=== PATIENT | female | born 1980 | race Caucasian/White ===

== ENCOUNTER → 2018-06-16 | Outpatient (REF) | payer BC, MEDICAID ==
[2018-06-16 16:26] LABS: C REACTIVE PROTEIN QUANTITATIV 0.38 MG/DL (0.00-0.30); RHEUMATOID FACTOR QUANT < 10.0 IU/ML (<15.0)
[2018-06-22 00:06] LABS: ANTINUCLEAR ANTIBODIES DIRECT Negative (Negative); HLA-B27 Negative (.)
== END ==
LOC: M LAB REF 15:49 → M LABDRWAD 15:49
PROVIDERS: ATTEND Physician Assistant
DX: M79.18 Myalgia, other site (principal)

== ENCOUNTER → 2018-07-28 | Outpatient (REF) | payer BC, MEDICAID ==
[2018-07-28 17:47] LABS: ALBUMIN 3.9 GM/DL (3.2-5.2); ALT/SGPT 34 U/L (12-78); BILIRUBIN,TOTAL 0.6 MG/DL (0.2-1.0); BLOOD UREA NITROGEN 9 MG/DL (7-18); CARBON DIOXIDE LEVEL 29 MEQ/L (21-32); CHLORIDE LEVEL 109 MEQ/L (98-107); CREATININE FOR GFR 0.93 MG/DL (0.55-1.30); GLOMERULAR FILTRATION RATE > 60.0 (>60); GLUCOSE, FASTING 95 MG/DL (70-100); POTASSIUM SERUM 3.8 MEQ/L (3.5-5.1); PROLACTIN 5.2 NG/ML; SODIUM LEVEL 142 MEQ/L (136-145); TESTOSTERONE 33 NG/DL (14-76); TOTAL PROTEIN 7.7 GM/DL (6.4-8.2)
[2018-07-28 17:48] LABS: ESTRADIOL 42.4 PG/ML; FOLLICLE STIMULATING HORMONE 7.3 mIU/mL
[2018-07-28 17:55] LABS: AMORPHOUS SEDIMENT SMALL (NEGATIVE); APPEARANCE, URINE HAZY (CLEAR); BACTERIA, URINE AUTO NEGATIVE (NEGATIVE); BILIRUBIN, URINE AUTO NEGATIVE (NEGATIVE); BLOOD, URINE BLOOD NEGATIVE (NEGATIVE); COLOR, URINE AMBER (YELLOW); GLUCOSE, URINE (UA) AUTO NEGATIVE (NEGATIVE); KETONE, URINE AUTO TRACE mg/dL (NEGATIVE); LEUKOCYTE ESTERASE, URINE AUTO TRACE (NEGATIVE); MUCUS, URINE LARGE (NEGATIVE); NITRITE, URINE AUTO NEGATIVE (NEGATIVE); PROTEIN, URINE AUTO 2+ mg/dL (NEGATIVE); RBC, URINE AUTO 2 /HPF (0-3); SPECIFIC GRAVITY URINE AUTO 1.026 (1.002-1.035); SQUAMOUS EPITHELIAL CELL UR AU 5 /HPF (0-6); WBC, URINE AUTO 8 /HPF (0-3)
[2018-07-28 18:28] LABS: HIV 1&2 SCREEN CENTAUR NEGATIVE (NEGATIVE)
[2018-07-28 21:46] LABS: CHLAMYDIA DNA AMPLIFICATION NEGATIVE (NEGATIVE); GC DNA AMPLIFICATION NEGATIVE (NEGATIVE)
[2018-07-30 10:39] LABS: HEPATITIS B SURFACE ANTIGEN NEGATIVE (NEGATIVE)
[2018-08-03 14:13] LABS: HSV TYPE I IgM AB <1:10 titer (<1:10); HSV TYPE II IgM ABY <1:10 titer (<1:10)
== END ==
LOC: M LABDRAW1 17:00
PROVIDERS: ATTEND Nurse Practitioner Family
DX: Z11.3 Encounter for screening for infections with a predominantly sexual mode of transmission (principal); E28.2 Polycystic ovarian syndrome; N91.5 Oligomenorrhea, unspecified; N39.0 Urinary tract infection, site not specified

== ENCOUNTER → 2022-04-08 | Outpatient (CLI) | payer MEDICAID ==
[2022-04-08 15:36] LABS: BASO # 0.1 10^3/uL (0.0-0.2); BASO % 1.1 % (0.0-1.0); EOS # 0.5 10^3/uL (0.0-0.5); EOS % 4.6 % (0.0-3.0); HEMATOCRIT 47.6 % (36.0-47.0); HEMOGLOBIN 14.9 g/dl (12.0-15.5); LYMPH # 3.1 10^3/uL (1.5-5.0); LYMPH % 29.7 % (24.0-44.0); MEAN CORPUSCULAR HEMOGLOBIN 29.9 pg (27.0-33.0); MEAN CORPUSCULAR HGB CONC 31.3 g/dl (32.0-36.5); MEAN CORPUSCULAR VOLUME 95.6 fl (80.0-96.0); MONO # 0.6 10^3/uL (0.0-0.8); MONO % 5.4 % (2.0-8.0); NEUTROPHILS # 6.2 10^3/uL (1.5-8.5); NEUTROPHILS % 58.8 % (36.0-66.0); PLATELET COUNT, AUTOMATED 426 10^3/uL (150-450); RED BLOOD COUNT 4.98 10^6/uL (4.00-5.40); WHITE BLOOD COUNT 10.5 10^3/uL (4.0-10.0)
[2022-04-08 15:52] LABS: APPEARANCE, URINE MANUAL HAZY (CLEAR); COLOR, URINE MANUAL YELLOW (YELLOW)
[2022-04-08 15:53] LABS: SPECIFIC GRAVITY,URINE MANUAL 1.015 (1.002-1.035)
[2022-04-08 15:55] LABS: BILIRUBIN, URINE MANUAL NEGATIVE (NEGATIVE); BLOOD URINE MANUAL NEGATIVE (NEGATIVE); GLUCOSE, URINE (UA) MANUAL NEGATIVE (NEGATIVE); KETONE, URINE MANUAL NEGATIVE (NEGATIVE); LEUKOCYTE ESTERASE, URINE MAN POSITIVE (NEGATIVE); NITRITE, URINE MANUAL NEGATIVE (NEGATIVE); PROTEIN, URINE MANUAL NEGATIVE (NEGATIVE); UROBILINOGEN, URINE MANUAL NORMAL (NORMAL)
[2022-04-08 16:13] LABS: RBC, URINE 0-1 /hpf (0-3); SQUAMOUS EPITHELIAL CELL URINE LARGE AMOUNT /hpf (SMALL AMT)
[2022-04-08 16:14] LABS: BACTERIA, URINE SMALL AMOUNT; HYALINE CAST, URINE NONE SEEN /lpf (0-1); MUCUS, URINE MOD AMOUNT (NEGATIVE)
[2022-04-08 16:27] LABS: ALKALINE PHOSPHATASE 86 U/L (46-116); ALT/SGPT 56 U/L (7.0-40); AST/SGOT 37 U/L (<34); BILIRUBIN,TOTAL 0.5 MG/DL (0.3-1.2); BLOOD UREA NITROGEN 9 MG/DL (9-23); CALCIUM LEVEL 9.8 MG/DL (8.5-10.1); CARBON DIOXIDE LEVEL 26 MMOL/L (20-31); CHLORIDE LEVEL 106 MMOL/L (98-107); CREATININE FOR GFR 0.65 MG/DL (0.55-1.30); FREE T4 0.82 NG/DL (0.89-1.76); GLOMERULAR FILTRATION RATE > 60.0 (>58); GLUCOSE, FASTING 81 MG/DL (60-100); IMMUNOGLOBULIN A 316.8 MG/DL (40-350); IMMUNOGLOBULIN G 1161 MG/DL (650-1600); IMMUNOGLOBULIN M 175.9 MG/DL (50-300); POTASSIUM SERUM 4.9 MMOL/L (3.5-5.1); SODIUM LEVEL 140 MMOL/L (136-145); TOTAL PROTEIN 7.3 G/DL (5.7-8.2)
[2022-04-08 16:28] LABS: THYROID STIMULATING HORMONE 1.548 uIU/ML (0.55-4.78)
[2022-04-08 16:29] LABS: HIV 1&2 SCREEN CENTAUR NEGATIVE (NEGATIVE)
== END ==
LOC: M PLALAB 12:32
PROVIDERS: ATTEND Internal Medicine Infectious Disease
DX: B99.9 Unspecified infectious disease (principal); R63.4 Abnormal weight loss; R10.84 Generalized abdominal pain; K58.2 Mixed irritable bowel syndrome

== ENCOUNTER → 2023-12-18 | Outpatient (CLI) | payer MEDICARE, MEDICAID ==
[2023-12-18 15:27] LABS: BASO # 0.1 10^3/uL (0.0-0.2); BASO % 0.7 % (0.0-1.0); EOS # 0.2 10^3/uL (0.0-0.5); EOS % 1.5 % (0.0-3.0); HEMATOCRIT 40.3 % (36.0-47.0); HEMOGLOBIN 13.2 g/dl (12.0-15.5); LYMPH # 3.2 10^3/uL (1.5-5.0); LYMPH % 30.7 % (24.0-44.0); MEAN CORPUSCULAR HEMOGLOBIN 30.3 pg (27.0-33.0); MEAN CORPUSCULAR HGB CONC 32.8 g/dl (32.0-36.5); MEAN CORPUSCULAR VOLUME 92.4 fl (80.0-96.0); MONO # 0.6 10^3/uL (0.0-0.8); MONO % 5.4 % (2.0-8.0); NEUTROPHILS # 6.3 10^3/uL (1.5-8.5); NEUTROPHILS % 61.4 % (36.0-66.0); PLATELET COUNT, AUTOMATED 398 10^3/uL (150-450); RED BLOOD COUNT 4.36 10^6/uL (4.00-5.40); WHITE BLOOD COUNT 10.3 10^3/uL (4.0-10.0)
[2023-12-18 15:49] LABS: HEMOGLOBIN A1c 5.1 % (4.0-6.0)
[2023-12-18 16:02] LABS: ALBUMIN 3.6 G/DL (3.2-5.2); ALKALINE PHOSPHATASE 64 U/L (46-116); ALT/SGPT 20 U/L (7.0-40); AST/SGOT 15 U/L (<34); BILIRUBIN,TOTAL 0.4 MG/DL (0.3-1.2); BLOOD UREA NITROGEN 15 MG/DL (9-23); CALCIUM LEVEL 9.9 MG/DL (8.5-10.1); CARBON DIOXIDE LEVEL 26 MMOL/L (20-31); CHLORIDE LEVEL 108 MMOL/L (98-107); CHOLESTEROL LEVEL 168 MG/DL (<200); CHOLESTEROL RISK RATIO 3.16 (<5); CREATININE FOR GFR 0.68 MG/DL (0.55-1.30); GLOMERULAR FILTRATION RATE > 60.0 (>58); GLUCOSE, FASTING 114 MG/DL (60-100); LDL CHOLESTEROL 95.4 MG/DL (<100); POTASSIUM SERUM 4.1 MMOL/L (3.5-5.1); SODIUM LEVEL 141 MMOL/L (136-145); TOTAL PROTEIN 7.1 G/DL (5.7-8.2); TRIGLYCERIDES LEVEL 98 MG/DL (<150)
[2023-12-18 16:04] LABS: THYROID STIMULATING HORMONE 1.724 uIU/ML (0.55-4.78)
== END ==
LOC: M LAB 14:37
PROVIDERS: ATTEND Nurse Practitioner Psychiatric/Mental Health
DX: F43.10 Post-traumatic stress disorder, unspecified (principal); E78.00 Pure hypercholesterolemia, unspecified

== ENCOUNTER → 2024-01-14 | Outpatient (REF) | payer MEDICARE, MEDICAID ==
[2024-01-14 14:40] LABS: ALBUMIN 3.8 G/DL (3.2-5.2); ALKALINE PHOSPHATASE 64 U/L (35-104); ALT/SGPT 24 U/L (7.0-40); AST/SGOT 23 U/L (<34); BILIRUBIN,TOTAL 0.5 MG/DL (0.3-1.2); BLOOD UREA NITROGEN 11 MG/DL (9-23); CALCIUM LEVEL 9.9 MG/DL (8.5-10.1); CARBON DIOXIDE LEVEL 26 MMOL/L (20-31); CHLORIDE LEVEL 108 MMOL/L (98-107); CHOLESTEROL LEVEL 172 MG/DL (<200); CHOLESTEROL RISK RATIO 2.87 (<5); CREATININE FOR GFR 0.71 MG/DL (0.55-1.30); GLOMERULAR FILTRATION RATE > 60.0 (>58); GLUCOSE, FASTING 79 MG/DL (60-100); HDL CHOLESTEROL 59.9 MG/DL (>40); LDL CHOLESTEROL 98.9 MG/DL (<100); NON-HDL-C 112.1 MG/DL; POTASSIUM SERUM 4.1 MMOL/L (3.5-5.1); SODIUM LEVEL 141 MMOL/L (136-145); THYROID STIMULATING HORMONE 1.719 uIU/ML (0.55-4.78); TOTAL PROTEIN 7.2 G/DL (5.7-8.2); TRIGLYCERIDES LEVEL 66 MG/DL (<150)
[2024-01-14 14:41] LABS: TOTAL 25(OH) VITAMIN D 38.6 NG/ML (20.0-100.0)
[2024-01-14 15:05] LABS: HIV 1&2 SCREEN NEGATIVE (NEGATIVE)
[2024-01-14 15:13] LABS: HEPATITIS C VIRUS ABY INDEX < 0.02 INDEX (<0.8)
== END ==
LOC: M LAB REF 13:39
PROVIDERS: ATTEND Physician Assistant
DX: E55.9 Vitamin D deficiency, unspecified (principal); E66.9 Obesity, unspecified; Z13.1 Encounter for screening for diabetes mellitus; Z11.3 Encounter for screening for infections with a predominantly sexual mode of transmission; Z72.89 Other problems related to lifestyle

== ENCOUNTER → 2024-02-16 | Outpatient (CLI) | payer OTHER ==
[~2024-02-16] MED LIST: ARIP1TAB6 PO; DIAZ5TAB PO; DULO1CAP6 PO; METF500T13 PO; PRAZ1CAP PO
== END ==
LOC: M WHC 15:33
PROVIDERS: ATTEND Physician Assistant
DX: Z12.31 Encounter for screening mammogram for malignant neoplasm of breast (principal)

== ENCOUNTER 2024-02-18 12:47 | Inpatient (IN) | payer OTHER ==
[~2024-02-18] VITALS: Ht 154.9 cm; Wt 102.8 kg
[2024-02-18] MEDS ORDERED: PRAZ1CAP PO (12:54)
[2024-02-18] MEDS ORDERED: DIAZ5TAB PO (12:54)
[2024-02-18] MEDS ORDERED: DULO1CAP6 PO (12:54)
[2024-02-18] MEDS ORDERED: METF500T13 PO (12:54)
[2024-02-18] MEDS ORDERED: ARIP1TAB6 PO (12:54)
[2024-02-18 13:51] LABS: HEMATOCRIT 39.4 % (36.0-47.0); HEMOGLOBIN 13.1 g/dl (12.0-15.5); MEAN CORPUSCULAR HEMOGLOBIN 30.2 pg (27.0-33.0); MEAN CORPUSCULAR HGB CONC 33.2 g/dl (32.0-36.5); MEAN CORPUSCULAR VOLUME 90.8 fl (80.0-96.0); PLATELET COUNT, AUTOMATED 415 10^3/uL (150-450); RED BLOOD COUNT 4.34 10^6/uL (4.00-5.40); WHITE BLOOD COUNT 27.2 10^3/uL (4.0-10.0)
[2024-02-18] MEDS: ONDANSETRON 4MG 2ML VIAL IV ONE (14:04)
[2024-02-18] MEDS: NS (Normal Saline) 0.9% 1,000 ML IV ONE (14:04)
[2024-02-18] MEDS: KETOROLAC 30 MG/ML 1ML VIAL IV ONE (14:10)
[2024-02-18 14:18] LABS: LIPASE 22 U/L (12-53)
[2024-02-18 14:20] LABS: ALBUMIN 3.3 G/DL (3.2-5.2); ALKALINE PHOSPHATASE 63 U/L (35-104); ALT/SGPT 30 U/L (7.0-40); AST/SGOT 33 U/L (<34); BILIRUBIN,DIRECT 0.4 MG/DL (<0.4); HCG, SERUM QUALITATIVE NEGATIVE (NEGATIVE); TOTAL PROTEIN 6.8 G/DL (5.7-8.2)
[2024-02-18] MEDS ORDERED: PIPERACILLIN/TAZOBACTAM SOD 4.5 GM in DEXTROSE 5% (D5W) ADV/MINI-BAG 50 ML IV ONE (14:20)
[2024-02-18] MEDS ORDERED: ISOVUE-370 76% 100ML VIAL As Ordered ONE (14:27)
[2024-02-18 14:32] LABS: LYMPHOCYTES 1 % (16-44); METAMYELOCYTES 6 % (0-0); MONOCYTES 3 % (0-5); NEUTROPHILS 76 % (28-66)
[2024-02-18 14:33] LABS: PLATELET ESTIMATE NORMAL (NORMAL)
[2024-02-18 14:45] LABS: CK-MB VALUE MASS < 1.0 NG/ML (<3.6)
[2024-02-18 14:47] LABS: C REACTIVE PROTEIN QUANTITATIV 15.24 MG/DL (<1.0)
[2024-02-18 14:53] LABS: PROCALCITONIN 9.34 ng/ml
[2024-02-18 14:56] LABS: CPK CREATINE PHOSPHOKINASE 99 U/L (34-145); MB/CK RELATIVE INDEX 1.01 (< OR =4)
[2024-02-18] MEDS: cefTRIAXone SOD 1 GM in DEXTROSE 5% (D5W) ADV/MINI-BAG 50 ML IV ONE (15:40)
[2024-02-18] MEDS: metroNIDAZOLE 500 MG in IV 1 EA IV ONE (16:17)
[2024-02-18] MEDS ORDERED: MAALOX 30 ML SUSP *UDC PO PRN (16:25)
[2024-02-18] MEDS: NS (Normal Saline) 0.9% 1,910 ML in IV 1 EA IV ONE (16:33)
[2024-02-18] MEDS ORDERED: HOME MED LIST COMPLETE! XX SCH (16:45)
[2024-02-18] MEDS: DOXYCYCLINE HYCLATE 100 MG in DEXTROSE 5% (D5W) MINI-BAG PLU 100 ML IV ONE (17:28)
[2024-02-18 18:23] LABS: IRON (FE) < 5 UG/DL (50-170); PERCENT SATURATION 2.1 % (13.2-45.0); TOTAL IRON BINDING CAPACITY 233 UG/DL (250-425)
[2024-02-18 18:24] LABS: CARCINOEMBRYONIC ANTIGEN < 2.0 NG/ML (<2.5)
[2024-02-18 18:25] LABS: FERRITIN 83.2 NG/ML (7.3-270.7); VITAMIN B12 LEVEL 457 PG/ML (211-911)
[2024-02-18 18:33] LABS: FOLATE 8.12 NG/ML (>5.4)
[2024-02-18 18:39] LABS: CA19-9 TUMOR MARKER,CARBOHYDRA 41.5 U/ML (<35.0)
[2024-02-18 18:56] LABS: BASO # 0.1 10^3/uL (0.0-0.2); BASO % 0.3 % (0.0-1.0); LYMPH # 0.6 10^3/uL (1.5-5.0); LYMPH % 2.3 % (24.0-44.0); MONO # 0.8 10^3/uL (0.0-0.8); MONO % 2.9 % (2.0-8.0); NEUTROPHILS # 24.6 10^3/uL (1.5-8.5); NEUTROPHILS % 93.8 % (36.0-66.0)
[2024-02-18 19:20] VITALS: BP 117/68; TEMP 98.1; O2SAT 100
[2024-02-18] MEDS: ALBUTEROL SULFATE 2.5MG/0.5ML INH NEB SOLN INH SCH (19:27)
[2024-02-18 19:47] LABS: Trichomonas vaginalis (AMP) NOT DETECTED (NEGATIVE)
[2024-02-18] MEDS: diazePAM 5MG TABLET PO PRN (19:52)
[2024-02-18] MEDS: HYDROMORPHONE HCL 0.5 MG/ 0.5 ML SYRINGE IV PRN (19:52)
[2024-02-18 20:05] VITALS: O2SAT 95
[2024-02-18 20:10] LABS: GC DNA AMPLIFICATION NEGATIVE (NEGATIVE)
[2024-02-18] MEDS ORDERED: PROHANCE 279.3MG/ML 5ML VIAL As Ordered ONE (20:28)
[2024-02-18] MEDS ORDERED: PROHANCE 279.3MG/ML 15ML VIAL As Ordered ONE (20:28)
[2024-02-18] MEDS: DOCUSATE SODIUM 100MG CAPSULE PO SCH (21:00)
[2024-02-18] MEDS: guaiFENesin ER TABLET 600 MG TAB PO SCH (21:00)
[2024-02-18] MEDS: NS (Normal Saline) 0.9% 1,000 ML IV SCH (21:51)
[2024-02-18] MEDS: PRAZOSIN 1 MG CAP PO SCH (21:51)
[2024-02-18] MEDS: PIPERACILLIN/TAZOBACTAM SOD 3.375 GM in DEXTROSE 5% (D5W) ADV/MINI-BAG 50 ML IV SCH (21:51)
[2024-02-18 23:54] VITALS: BP 106/65; TEMP 98.6; O2SAT 93
[2024-02-19] VITALS (10 sets, daily range): BP systolic 16–151; BP diastolic 54–71; TEMP 98.2–102.9; O2SAT 88–94
[2024-02-19 01:06] LABS: HEMATOCRIT 31.2 % (36.0-47.0)
[2024-02-19 03:00] LABS: BASO % 0.2 % (0.0-1.0); EOS # 0.1 10^3/uL (0.0-0.5); EOS % 0.4 % (0.0-3.0); HEMATOCRIT 36.3 % (36.0-47.0); HEMOGLOBIN 11.2 g/dl (12.0-15.5); LYMPH # 1.5 10^3/uL (1.5-5.0); LYMPH % 7.3 % (24.0-44.0); MEAN CORPUSCULAR HEMOGLOBIN 29.4 pg (27.0-33.0); MEAN CORPUSCULAR HGB CONC 30.9 g/dl (32.0-36.5); MEAN CORPUSCULAR VOLUME 95.3 fl (80.0-96.0); MONO # 0.8 10^3/uL (0.0-0.8); MONO % 4.1 % (2.0-8.0); NEUTROPHILS # 17.7 10^3/uL (1.5-8.5); NEUTROPHILS % 86.8 % (36.0-66.0); RED BLOOD COUNT 3.81 10^6/uL (4.00-5.40); WHITE BLOOD COUNT 20.4 10^3/uL (4.0-10.0)
[2024-02-19 03:15] LABS: PLATELET COUNT, AUTOMATED 315 10^3/uL (150-450)
[2024-02-19 03:46] LABS: ALBUMIN 2.6 G/DL (3.2-5.2); ALKALINE PHOSPHATASE 59 U/L (35-104); ALT/SGPT 20 U/L (7.0-40); AST/SGOT 22 U/L (<34); BILIRUBIN,TOTAL 0.5 MG/DL (0.3-1.2); BLOOD UREA NITROGEN 18 MG/DL (9-23); CALCIUM LEVEL 7.9 MG/DL (8.5-10.1); CARBON DIOXIDE LEVEL 24 MMOL/L (20-31); CHLORIDE LEVEL 108 MMOL/L (98-107); CREATININE FOR GFR 0.81 MG/DL (0.55-1.30); GLOMERULAR FILTRATION RATE > 60.0 (>58); GLUCOSE, FASTING 94 MG/DL (60-100); MAGNESIUM LEVEL 1.3 MG/DL (1.8-2.4); POTASSIUM SERUM 3.8 MMOL/L (3.5-5.1); SODIUM LEVEL 140 MMOL/L (136-145)
[2024-02-19] MEDS: DOXYCYCLINE HYCLATE 100 MG in DEXTROSE 5% (D5W) MINI-BAG PLU 100 ML IV SCH (04:04)
[2024-02-19] MEDS: MAG SULF 1GM/100ML (MAG RUN) 1 GM in IV 1 EA IV SCH (08:24)
[2024-02-19] MEDS: ACETAMINOPHEN *IV* 1,000 MG in IV 1 EA IV ONE ×2 (08:25→16:44)
[2024-02-19] MEDS: DULoxetine 30MG CAPSULE (CYMBALTA) PO SCH (08:25)
[2024-02-19 08:55] LABS: CK-MB VALUE MASS 1.6 NG/ML (<3.6)
[2024-02-19 08:56] LABS: CPK CREATINE PHOSPHOKINASE 95 U/L (34-145); MB/CK RELATIVE INDEX 1.68 (< OR =4)
[2024-02-19] MEDS: NS 500 ML IV ONE (09:00)
[2024-02-19 09:14] LABS: C REACTIVE PROTEIN QUANTITATIV 28.55 MG/DL (<1.0)
[2024-02-19 09:50] LABS: PROCALCITONIN 4.54 ng/ml
[2024-02-19] MEDS: NS (Normal Saline) 0.9% 1,000 ML IV STA (10:16)
[2024-02-19 11:19] LABS: CK-MB VALUE MASS 1.9 NG/ML (<3.6)
[2024-02-19 11:21] LABS: MB/CK RELATIVE INDEX 1.58 (< OR =4)
[2024-02-19 12:37] LABS: HEPATITIS B SURFACE ANTIGEN NEGATIVE (NEGATIVE)
[2024-02-19 12:50] LABS: HIV 1&2 SCREEN NEGATIVE (NEGATIVE)
[2024-02-19 12:58] LABS: HEPATITIS C VIRUS ABY INDEX < 0.02 INDEX (<0.8)
[2024-02-19] MEDS: HEPARIN SOD (PORCINE) 5000UNITS/ML 1ML VIAL/SYRINGE SQ SCH (13:42)
[2024-02-19] MEDS: ACETAMINOPHEN 325 MG TAB PO PRN (22:26)
[2024-02-20] VITALS (35 sets, daily range): BP systolic 123–142; BP diastolic 64–78; TEMP 98.1–102.2; O2SAT 85–100
[2024-02-20] MEDS: IPRATROPIUM 0.5MG/ALBUTEROL 2.5MG INH SOL UD 3ML (DUONEB) NEB SCH (01:07)
[2024-02-20 01:16] LABS: ABG BASE EXCESS -3.2 (-2.0-2.0); ABG PARTIAL PRESSURE CO2 33.2 mmHg (35.0-45.0); ABG STANDARD HCO3 21.8 MMOL/L. (22.0-26.0)
[2024-02-20 01:18] LABS: ABG HCO3 20.7 MMOL/L (22.0-26.0); ABG PARTIAL PRESSURE O2 98.9 mmHg (75.0-100.0); ABG TOTAL CO2 21.7 MMOL/L (22.0-29.0); ABG pH (ARTERIAL) 7.413 UNITS (7.350-7.450)
[2024-02-20] MEDS: IBUPROFEN 400MG TAB PO PRN (01:44)
[2024-02-20 06:34] LABS: BASO % 0.3 % (0.0-1.0); EOS # 0.2 10^3/uL (0.0-0.5); EOS % 1.5 % (0.0-3.0); HEMATOCRIT 30.2 % (36.0-47.0); HEMOGLOBIN 9.6 g/dl (12.0-15.5); LYMPH # 1.4 10^3/uL (1.5-5.0); LYMPH % 9.2 % (24.0-44.0); MEAN CORPUSCULAR HEMOGLOBIN 29.4 pg (27.0-33.0); MEAN CORPUSCULAR HGB CONC 31.8 g/dl (32.0-36.5); MEAN CORPUSCULAR VOLUME 92.6 fl (80.0-96.0); MONO # 0.4 10^3/uL (0.0-0.8); MONO % 2.6 % (2.0-8.0); NEUTROPHILS # 12.8 10^3/uL (1.5-8.5); NEUTROPHILS % 84.6 % (36.0-66.0); PLATELET COUNT, AUTOMATED 273 10^3/uL (150-450); RED BLOOD COUNT 3.26 10^6/uL (4.00-5.40); WHITE BLOOD COUNT 15.2 10^3/uL (4.0-10.0)
[2024-02-20 07:14] LABS: PROCALCITONIN 2.35 ng/ml
[2024-02-20 07:33] LABS: ALKALINE PHOSPHATASE 67 U/L (35-104); ALT/SGPT 14 U/L (7.0-40); AST/SGOT 16 U/L (<34); BILIRUBIN,TOTAL 0.4 MG/DL (0.3-1.2); BLOOD UREA NITROGEN 8 MG/DL (9-23); C REACTIVE PROTEIN QUANTITATIV 28.48 MG/DL (<1.0); CALCIUM LEVEL 8.1 MG/DL (8.5-10.1); CARBON DIOXIDE LEVEL 26 MMOL/L (20-31); CHLORIDE LEVEL 109 MMOL/L (98-107); CREATININE FOR GFR 0.64 MG/DL (0.55-1.30); GLOMERULAR FILTRATION RATE > 60.0 (>58); GLUCOSE, FASTING 104 MG/DL (60-100); MAGNESIUM LEVEL 2.2 MG/DL (1.8-2.4); POTASSIUM SERUM 3.5 MMOL/L (3.5-5.1); SODIUM LEVEL 141 MMOL/L (136-145); TOTAL PROTEIN 5.1 G/DL (5.7-8.2)
[2024-02-20] MEDS: FUROSEMIDE 20MG/2ML VIAL IV ONE (13:29)
[2024-02-21] VITALS (32 sets, daily range): BP systolic 132–144; BP diastolic 69–86; TEMP 99.9–100.4; O2SAT 87–100
[2024-02-21] MEDS: ALBUTEROL SULFATE 2.5MG/0.5ML INH NEB SOLN INH PRN (05:21)
[2024-02-21 06:48] LABS: ALBUMIN 1.9 G/DL (3.2-5.2); ALKALINE PHOSPHATASE 81 U/L (35-104); ALT/SGPT 13 U/L (7.0-40); AST/SGOT 16 U/L (<34); BILIRUBIN,TOTAL 0.4 MG/DL (0.3-1.2); BLOOD UREA NITROGEN 6 MG/DL (9-23); CALCIUM LEVEL 8.1 MG/DL (8.5-10.1); CARBON DIOXIDE LEVEL 25 MMOL/L (20-31); CHLORIDE LEVEL 107 MMOL/L (98-107); CREATININE FOR GFR 0.55 MG/DL (0.55-1.30); GLOMERULAR FILTRATION RATE > 60.0 (>58); GLUCOSE, FASTING 140 MG/DL (60-100); MAGNESIUM LEVEL 1.7 MG/DL (1.8-2.4); POTASSIUM SERUM 3.5 MMOL/L (3.5-5.1); SODIUM LEVEL 141 MMOL/L (136-145); TOTAL PROTEIN 5.1 G/DL (5.7-8.2)
[2024-02-21 06:54] LABS: PROCALCITONIN 1.33 ng/ml
[2024-02-21 07:06] LABS: C REACTIVE PROTEIN QUANTITATIV 27.72 MG/DL (<1.0)
[2024-02-21 07:12] LABS: BASO # 0.1 10^3/uL (0.0-0.2); BASO % 0.4 % (0.0-1.0); EOS # 0.5 10^3/uL (0.0-0.5); EOS % 3.5 % (0.0-3.0); HEMATOCRIT 29.3 % (36.0-47.0); HEMOGLOBIN 9.6 g/dl (12.0-15.5); LYMPH # 1.8 10^3/uL (1.5-5.0); LYMPH % 14.3 % (24.0-44.0); MEAN CORPUSCULAR HEMOGLOBIN 29.8 pg (27.0-33.0); MEAN CORPUSCULAR HGB CONC 32.8 g/dl (32.0-36.5); MONO # 0.8 10^3/uL (0.0-0.8); MONO % 6.1 % (2.0-8.0); NEUTROPHILS # 9.6 10^3/uL (1.5-8.5); NEUTROPHILS % 75.1 % (36.0-66.0); PLATELET COUNT, AUTOMATED 318 10^3/uL (150-450); RED BLOOD COUNT 3.22 10^6/uL (4.00-5.40); WHITE BLOOD COUNT 12.8 10^3/uL (4.0-10.0)
[2024-02-21] MEDS: FUROSEMIDE 20MG/2ML VIAL IV ONE (14:31)
[2024-02-21] MEDS: DOXYCYCLINE HYCLATE 100MG TABLET PO SCH (20:07)
[2024-02-22] VITALS (32 sets, daily range): BP systolic 133–154; BP diastolic 71–79; TEMP 99.1–100.2; O2SAT 86–99
[2024-02-22 07:15] LABS: BASO # 0.1 10^3/uL (0.0-0.2); BASO % 0.7 % (0.0-1.0); EOS # 0.5 10^3/uL (0.0-0.5); EOS % 4.8 % (0.0-3.0); HEMATOCRIT 29.5 % (36.0-47.0); HEMOGLOBIN 9.7 g/dl (12.0-15.5); LYMPH # 2.4 10^3/uL (1.5-5.0); LYMPH % 23.6 % (24.0-44.0); MEAN CORPUSCULAR HEMOGLOBIN 29.3 pg (27.0-33.0); MEAN CORPUSCULAR HGB CONC 32.9 g/dl (32.0-36.5); MEAN CORPUSCULAR VOLUME 89.1 fl (80.0-96.0); MONO # 0.8 10^3/uL (0.0-0.8); MONO % 8.2 % (2.0-8.0); NEUTROPHILS # 6.1 10^3/uL (1.5-8.5); NEUTROPHILS % 59.3 % (36.0-66.0); PLATELET COUNT, AUTOMATED 393 10^3/uL (150-450); RED BLOOD COUNT 3.31 10^6/uL (4.00-5.40); WHITE BLOOD COUNT 10.3 10^3/uL (4.0-10.0)
[2024-02-22 07:47] LABS: PROCALCITONIN 0.83 ng/ml
[2024-02-22 07:55] LABS: ALBUMIN 1.9 G/DL (3.2-5.2); ALKALINE PHOSPHATASE 98 U/L (35-104); ALT/SGPT 10 U/L (7.0-40); AST/SGOT 11 U/L (<34); BILIRUBIN,TOTAL 0.4 MG/DL (0.3-1.2); BLOOD UREA NITROGEN 10 MG/DL (9-23); C REACTIVE PROTEIN QUANTITATIV 24.35 MG/DL (<1.0); CALCIUM LEVEL 8.8 MG/DL (8.5-10.1); CARBON DIOXIDE LEVEL 29 MMOL/L (20-31); CHLORIDE LEVEL 105 MMOL/L (98-107); CREATININE FOR GFR 0.57 MG/DL (0.55-1.30); GLOMERULAR FILTRATION RATE > 60.0 (>58); GLUCOSE, FASTING 104 MG/DL (60-100); MAGNESIUM LEVEL 1.5 MG/DL (1.8-2.4); POTASSIUM SERUM 3.2 MMOL/L (3.5-5.1); SODIUM LEVEL 142 MMOL/L (136-145); TOTAL PROTEIN 5.3 G/DL (5.7-8.2)
[2024-02-22] MEDS: MAG SULF 1GM/100ML (MAG RUN) 1 GM in IV 1 EA IV SCH (09:24)
[2024-02-22] MEDS: POTASSIUM CHLORIDE 10MEQ SR TABLET PO ONE ×2 (09:25→11:51)
[2024-02-22] MEDS: HYDROMORPHONE HCL 0.5 MG/ 0.5 ML SYRINGE IV PRN (09:25)
[2024-02-22] MEDS: FUROSEMIDE 20MG/2ML VIAL IV ONE (15:16)
[2024-02-23] VITALS (32 sets, daily range): BP systolic 106–147; BP diastolic 55–78; TEMP 97.2–99.9; O2SAT 87–100
[2024-02-23 07:11] LABS: BASO # 0.1 10^3/uL (0.0-0.2); BASO % 0.7 % (0.0-1.0); EOS # 0.5 10^3/uL (0.0-0.5); EOS % 4.7 % (0.0-3.0); HEMATOCRIT 31.1 % (36.0-47.0); LYMPH # 2.4 10^3/uL (1.5-5.0); LYMPH % 25.6 % (24.0-44.0); MEAN CORPUSCULAR HGB CONC 32.2 g/dl (32.0-36.5); MEAN CORPUSCULAR VOLUME 90.1 fl (80.0-96.0); MONO # 0.8 10^3/uL (0.0-0.8); MONO % 7.9 % (2.0-8.0); NEUTROPHILS # 5.3 10^3/uL (1.5-8.5); NEUTROPHILS % 56.1 % (36.0-66.0); PLATELET COUNT, AUTOMATED 429 10^3/uL (150-450); RED BLOOD COUNT 3.45 10^6/uL (4.00-5.40); WHITE BLOOD COUNT 9.5 10^3/uL (4.0-10.0)
[2024-02-23 07:33] LABS: C REACTIVE PROTEIN QUANTITATIV 14.62 MG/DL (<1.0)
[2024-02-23 07:40] LABS: PROCALCITONIN 0.53 ng/ml
[2024-02-23 07:42] LABS: ALBUMIN 1.9 G/DL (3.2-5.2); ALKALINE PHOSPHATASE 133 U/L (35-104); ALT/SGPT 11 U/L (7.0-40); AST/SGOT 12 U/L (<34); BILIRUBIN,TOTAL 0.3 MG/DL (0.3-1.2); BLOOD UREA NITROGEN 8 MG/DL (9-23); CALCIUM LEVEL 8.8 MG/DL (8.5-10.1); CARBON DIOXIDE LEVEL 33 MMOL/L (20-31); CHLORIDE LEVEL 104 MMOL/L (98-107); CREATININE FOR GFR 0.63 MG/DL (0.55-1.30); GLOMERULAR FILTRATION RATE > 60.0 (>58); GLUCOSE, FASTING 139 MG/DL (60-100); MAGNESIUM LEVEL 1.8 MG/DL (1.8-2.4); POTASSIUM SERUM 3.5 MMOL/L (3.5-5.1); SODIUM LEVEL 143 MMOL/L (136-145); TOTAL PROTEIN 5.5 G/DL (5.7-8.2)
[2024-02-24] VITALS (19 sets, daily range): BP systolic 125–137; BP diastolic 80–87; TEMP 98.1–99.8; O2SAT 86–95
[2024-02-24] MEDS: MOM 30ML SUSPENSION UDC PO PRN (06:07)
[2024-02-24 06:38] LABS: HEMATOCRIT 32.8 % (36.0-47.0); HEMOGLOBIN 10.8 g/dl (12.0-15.5); MEAN CORPUSCULAR HEMOGLOBIN 29.6 pg (27.0-33.0); MEAN CORPUSCULAR HGB CONC 32.9 g/dl (32.0-36.5); MEAN CORPUSCULAR VOLUME 89.9 fl (80.0-96.0); PLATELET COUNT, AUTOMATED 475 10^3/uL (150-450); RED BLOOD COUNT 3.65 10^6/uL (4.00-5.40); WHITE BLOOD COUNT 14.5 10^3/uL (4.0-10.0)
[2024-02-24] MEDS: FUROSEMIDE 20MG/2ML VIAL IV ONE (06:56)
[2024-02-24 07:04] LABS: C REACTIVE PROTEIN QUANTITATIV 9.53 MG/DL (<1.0)
[2024-02-24 07:11] LABS: PROCALCITONIN 0.32 ng/ml
[2024-02-24 07:14] LABS: BASOPHILS 1 % (0-1); EOSINOPHILS 5 % (0-3); LYMPHOCYTES 27 % (16-44); MONOCYTES 9 % (0-5); NEUTROPHILS 58 % (28-66)
[2024-02-24 07:15] LABS: PLATELET CLUMPS SMALL AMT; PLATELET ESTIMATE INCREASED (NORMAL); POIKILOCYTOSIS 1+; POLYCHROMASIA 1+
[2024-02-24 07:16] LABS: ALBUMIN 2.2 G/DL (3.2-5.2); ALKALINE PHOSPHATASE 160 U/L (35-104); ALT/SGPT 12 U/L (7.0-40); AST/SGOT 13 U/L (<34); BILIRUBIN,TOTAL 0.3 MG/DL (0.3-1.2); BLOOD UREA NITROGEN 7 MG/DL (9-23); CALCIUM LEVEL 8.9 MG/DL (8.5-10.1); CARBON DIOXIDE LEVEL 26 MMOL/L (20-31); CHLORIDE LEVEL 104 MMOL/L (98-107); CREATININE FOR GFR 0.59 MG/DL (0.55-1.30); GLOMERULAR FILTRATION RATE > 60.0 (>58); GLUCOSE, FASTING 99 MG/DL (60-100); MAGNESIUM LEVEL 1.6 MG/DL (1.8-2.4); POTASSIUM SERUM 3.9 MMOL/L (3.5-5.1); SODIUM LEVEL 140 MMOL/L (136-145); TOTAL PROTEIN 5.9 G/DL (5.7-8.2)
[2024-02-24 13:17] LABS: HE4 150 pmol/L
[2024-02-24] MEDS: diazePAM 5MG TABLET PO PRN (15:04)
[2024-02-24] MEDS: NYSTATIN 100,000 UNITS/GM TOPICAL PWD 15GM TOP PRN (17:59)
[2024-02-25] VITALS (10 sets, daily range): BP systolic 126–128; BP diastolic 79–82; TEMP 97.1–100; O2SAT 90–96
[2024-02-25 06:34] LABS: BASO # 0.1 10^3/uL (0.0-0.2); BASO % 0.5 % (0.0-1.0); EOS # 0.4 10^3/uL (0.0-0.5); EOS % 1.9 % (0.0-3.0); HEMOGLOBIN 10.1 g/dl (12.0-15.5); LYMPH % 15.8 % (24.0-44.0); MEAN CORPUSCULAR HEMOGLOBIN 28.7 pg (27.0-33.0); MEAN CORPUSCULAR HGB CONC 31.6 g/dl (32.0-36.5); MEAN CORPUSCULAR VOLUME 90.9 fl (80.0-96.0); MONO # 1.1 10^3/uL (0.0-0.8); MONO % 5.8 % (2.0-8.0); NEUTROPHILS # 13.5 10^3/uL (1.5-8.5); NEUTROPHILS % 70.9 % (36.0-66.0); PLATELET COUNT, AUTOMATED 486 10^3/uL (150-450); RED BLOOD COUNT 3.52 10^6/uL (4.00-5.40)
[2024-02-25 06:59] LABS: ALBUMIN 2.1 G/DL (3.2-5.2); ALKALINE PHOSPHATASE 148 U/L (35-104); ALT/SGPT 10 U/L (7.0-40); AST/SGOT 14 U/L (<34); BILIRUBIN,TOTAL 0.3 MG/DL (0.3-1.2); BLOOD UREA NITROGEN 7 MG/DL (9-23); C REACTIVE PROTEIN QUANTITATIV 8.74 MG/DL (<1.0); CALCIUM LEVEL 8.9 MG/DL (8.5-10.1); CARBON DIOXIDE LEVEL 27 MMOL/L (20-31); CHLORIDE LEVEL 104 MMOL/L (98-107); CREATININE FOR GFR 0.65 MG/DL (0.55-1.30); GLOMERULAR FILTRATION RATE > 60.0 (>58); GLUCOSE, FASTING 85 MG/DL (60-100); MAGNESIUM LEVEL 1.9 MG/DL (1.8-2.4); POTASSIUM SERUM 4.3 MMOL/L (3.5-5.1); SODIUM LEVEL 140 MMOL/L (136-145); TOTAL PROTEIN 6.1 G/DL (5.7-8.2)
[2024-02-25 07:11] LABS: PROCALCITONIN 0.24 ng/ml
[2024-02-25] MEDS: FUROSEMIDE 20MG/2ML VIAL IV ONE (13:51)
[2024-02-26] VITALS (8 sets, daily range): BP systolic 111–125; BP diastolic 71–84; TEMP 97.8–98.6; O2SAT 90–98
[2024-02-26 07:58] LABS: BASO # 0.1 10^3/uL (0.0-0.2); BASO % 0.5 % (0.0-1.0); EOS # 0.4 10^3/uL (0.0-0.5); EOS % 2.1 % (0.0-3.0); HEMATOCRIT 32.7 % (36.0-47.0); HEMOGLOBIN 10.3 g/dl (12.0-15.5); LYMPH # 3.2 10^3/uL (1.5-5.0); LYMPH % 17.4 % (24.0-44.0); MEAN CORPUSCULAR HEMOGLOBIN 28.5 pg (27.0-33.0); MEAN CORPUSCULAR HGB CONC 31.5 g/dl (32.0-36.5); MEAN CORPUSCULAR VOLUME 90.6 fl (80.0-96.0); MONO # 0.9 10^3/uL (0.0-0.8); MONO % 4.6 % (2.0-8.0); NEUTROPHILS # 13.2 10^3/uL (1.5-8.5); NEUTROPHILS % 70.9 % (36.0-66.0); PLATELET COUNT, AUTOMATED 546 10^3/uL (150-450); RED BLOOD COUNT 3.61 10^6/uL (4.00-5.40); WHITE BLOOD COUNT 18.6 10^3/uL (4.0-10.0)
[2024-02-26 08:19] LABS: BLOOD UREA NITROGEN 10 MG/DL (9-23); CALCIUM LEVEL 9.1 MG/DL (8.5-10.1); CARBON DIOXIDE LEVEL 27 MMOL/L (20-31); CHLORIDE LEVEL 104 MMOL/L (98-107); GLOMERULAR FILTRATION RATE > 60.0 (>58); GLUCOSE, FASTING 99 MG/DL (60-100); POTASSIUM SERUM 4.4 MMOL/L (3.5-5.1); SODIUM LEVEL 139 MMOL/L (136-145)
[2024-02-26 08:44] LABS: C REACTIVE PROTEIN QUANTITATIV 8.29 MG/DL (<1.0)
[2024-02-26 08:57] LABS: PROCALCITONIN 0.23 ng/ml
[2024-02-26] MEDS: LACTOBACILLUS ACIDOPHILUS CAP (BACID) PO SCH (09:11)
[2024-02-26 13:31] LABS: RSV AMPLIFICATION NEGATIVE (NEGATIVE)
[2024-02-26] MEDS ORDERED: PIPE3.3729 IV (14:13)
== END 2024-02-26 16:02 | disposition short-term general hospital (02) | DRG 720 ==
LOC: M ED 12:47 → M ED INP 17:28 → M PCU 18:58 → M MSPAV 02-24 00:30
PROVIDERS: ADMIT Internal Medicine; ATTEND Internal Medicine
PROC: B246ZZZ Ultrasonography of Right and Left Heart (ICD-10-PCS; principal; 2024-02-19)
DX: A41.9 Sepsis, unspecified organism (principal); E87.20 Acidosis, unspecified; E83.42 Hypomagnesemia; E87.70 Fluid overload, unspecified; J45.909 Unspecified asthma, uncomplicated; M79.7 Fibromyalgia; K58.9 Irritable bowel syndrome, unspecified; F32.A Depression, unspecified; F41.9 Anxiety disorder, unspecified; F43.10 Post-traumatic stress disorder, unspecified; E87.6 Hypokalemia; C53.9 Malignant neoplasm of cervix uteri, unspecified; N70.93 Salpingitis and oophoritis, unspecified; N93.9 Abnormal uterine and vaginal bleeding, unspecified; N83.201 Unspecified ovarian cyst, right side; Z79.899 Other long term (current) drug therapy

== ENCOUNTER → 2024-04-11 | Outpatient (CLI) | payer OTHER ==
[~2024-04-11] MED LIST changes: +ISOVUE-370 76% 100ML VIAL ONE; +PIPE3.3729 IV
== END ==
LOC: M PLAIMG 15:11
PROVIDERS: ATTEND Nurse Practitioner
DX: C54.1 Malignant neoplasm of endometrium (principal); R93.2 Abnormal findings on diagnostic imaging of liver and biliary tract; Z90.49 Acquired absence of other specified parts of digestive tract; R93.89 Abnormal findings on diagnostic imaging of other specified body structures; K42.9 Umbilical hernia without obstruction or gangrene

== ENCOUNTER 2024-04-24 18:59 | Emergency (ER) | payer OTHER ==
[~2024-04-24] VITALS: Ht 154.9 cm; Wt 93.4 kg
[~2024-04-24 18:59] MED LIST changes: -ISOVUE-370 76% 100ML VIAL ONE
[2024-04-24 20:49] LABS: BASO # 0.1 10^3/uL (0.0-0.2); BASO % 0.8 % (0.0-1.0); EOS # 0.1 10^3/uL (0.0-0.5); EOS % 0.5 % (0.0-3.0); HEMATOCRIT 33.4 % (36.0-47.0); HEMOGLOBIN 10.4 g/dl (12.0-15.5); LYMPH # 3.2 10^3/uL (1.5-5.0); LYMPH % 22.3 % (24.0-44.0); MEAN CORPUSCULAR HGB CONC 31.1 g/dl (32.0-36.5); MEAN CORPUSCULAR VOLUME 86.8 fl (80.0-96.0); MONO # 0.9 10^3/uL (0.0-0.8); MONO % 6.1 % (2.0-8.0); NEUTROPHILS # 10.1 10^3/uL (1.5-8.5); PLATELET COUNT, AUTOMATED 626 10^3/uL (150-450); RED BLOOD COUNT 3.85 10^6/uL (4.00-5.40); WHITE BLOOD COUNT 14.4 10^3/uL (4.0-10.0)
[2024-04-24 21:01] LABS: INR 1.06; PARTIAL THROMBOPLASTIN TIME 30.8 SECONDS (24.8-34.2); PROTHROMBIN TIME 14.1 SECONDS (12.5-14.5)
[2024-04-24] MEDS: MORPHINE 4 MG/ML 1ML VIAL IV ONE (21:10)
[2024-04-24 21:16] LABS: ALBUMIN 3.5 G/DL (3.2-5.2); ALKALINE PHOSPHATASE 70 U/L (35-104); ALT/SGPT < 9 U/L (7.0-40); AST/SGOT 25 U/L (<34); BILIRUBIN,TOTAL 0.4 MG/DL (0.3-1.2); BLOOD UREA NITROGEN 14 MG/DL (9-23); CALCIUM LEVEL 9.6 MG/DL (8.5-10.1); CARBON DIOXIDE LEVEL 25 MMOL/L (20-31); CHLORIDE LEVEL 103 MMOL/L (98-107); CREATININE FOR GFR 0.86 MG/DL (0.55-1.30); GLOMERULAR FILTRATION RATE > 60.0 (>58); GLUCOSE, FASTING 119 MG/DL (60-100); SODIUM LEVEL 140 MMOL/L (136-145); TOTAL PROTEIN 7.2 G/DL (5.7-8.2)
[2024-04-24] MEDS ORDERED: ISOVUE-370 76% 100ML VIAL As Ordered ONE (21:23)
[2024-04-24 23:45] LABS: KETONE, URINE AUTO RFX TRACE mg/dL (NEGATIVE); LEUKOCYTE ESTERASE UR AUTO RFX NEGATIVE (NEGATIVE); MUCUS, URINE RFX SMALL (NEGATIVE); NITRITE, URINE AUTO RFX NEGATIVE (NEGATIVE); RBC, URINE AUTO RFX TNTC /HPF (0-3); SQUAM EPITHELIAL CELL UR AURFX 1 /HPF (0-6); WBC, URINE AUTO RFX 2 /HPF (0-3)
[2024-04-25] MEDS: MORPHINE 4 MG/ML 1ML VIAL IV ONE ×2 (01:10→07:08)
[2024-04-25] MEDS: ACETAMINOPHEN *IV* 1,000 MG in IV 1 EA IV ONE (01:10)
[2024-04-25] MEDS: ONDANSETRON 4MG 2ML VIAL IV ONE (01:10)
[2024-04-25 06:15] VITALS: TEMP 97.1
[2024-04-25 06:45] VITALS: BP 150/92; O2SAT 94
== END 2024-04-25 07:20 | disposition short-term general hospital (02) ==
LOC: M ED 18:59
DX: N13.1 Hydronephrosis with ureteral stricture, not elsewhere classified (principal); N13.4 Hydroureter; Z85.41 Personal history of malignant neoplasm of cervix uteri; Z79.899 Other long term (current) drug therapy; Z88.0 Allergy status to penicillin
CPT/HCPCS: 74177; 80053; 81001; 85025; 85610; 85730; 86850; 86900; 86901; 96374; 96375; 96376; 99285; J0131; J2405; Q9967

== ENCOUNTER 2024-05-05 20:34 | Inpatient (IN) | payer OTHER ==
[~2024-05-05] VITALS: Ht 154.9 cm; Wt 100.8 kg
[2024-05-05] MEDS: cefTRIAXone SOD 2 GM in DEXTROSE 5% (D5W) ADV/MINI-BAG 50 ML IV ONE (22:15)
[2024-05-05 22:19] LABS: BASO % 0.8 % (0.0-1.0); HEMATOCRIT 26.3 % (36.0-47.0); HEMOGLOBIN 8.4 g/dl (12.0-15.5); LYMPH # 0.7 10^3/uL (1.5-5.0); LYMPH % 58.8 % (24.0-44.0); MEAN CORPUSCULAR HEMOGLOBIN 26.9 pg (27.0-33.0); MEAN CORPUSCULAR HGB CONC 31.9 g/dl (32.0-36.5); MEAN CORPUSCULAR VOLUME 84.3 fl (80.0-96.0); MONO # 0.1 10^3/uL (0.0-0.8); MONO % 10.9 % (2.0-8.0); NEUTROPHILS % 28.7 % (36.0-66.0); PLATELET COUNT, AUTOMATED 337 10^3/uL (150-450); RED BLOOD COUNT 3.12 10^6/uL (4.00-5.40); WHITE BLOOD COUNT 1.2 10^3/uL (4.0-10.0)
[2024-05-05] MEDS: NS 0.9% IV ONE (22:34)
[2024-05-05] MEDS: [UNRECOGNIZED DRUG - OTHER] IV ONE (22:34)
[2024-05-05] MEDS: ACETAMINOPHEN *IV* 1,000 MG in IV 1 EA IV ONE (22:35)
[2024-05-05] MEDS ORDERED: ISOVUE-370 76% 100ML VIAL As Ordered ONE (22:36)
[2024-05-05 22:42] LABS: LIPASE 22 U/L (12-53)
[2024-05-05 22:44] LABS: ALBUMIN 2.8 G/DL (3.2-5.2); ALKALINE PHOSPHATASE 96 U/L (35-104); ALT/SGPT 29 U/L (7.0-40); AST/SGOT 32 U/L (<34); BILIRUBIN,DIRECT 0.2 MG/DL (<0.4); BILIRUBIN,TOTAL 0.5 MG/DL (0.3-1.2); BLOOD UREA NITROGEN 6 MG/DL (9-23); CALCIUM LEVEL 8.6 MG/DL (8.5-10.1); CARBON DIOXIDE LEVEL 23 MMOL/L (20-31); CHLORIDE LEVEL 99 MMOL/L (98-107); CREATININE FOR GFR 0.66 MG/DL (0.55-1.30); GLOMERULAR FILTRATION RATE > 60.0 (>58); GLUCOSE, FASTING 127 MG/DL (60-100); POTASSIUM SERUM 3.1 MMOL/L (3.5-5.1); SODIUM LEVEL 134 MMOL/L (136-145); TOTAL PROTEIN 6.5 G/DL (5.7-8.2)
[2024-05-05 22:46] LABS: NEUTROPHILS # 0.3 10^3/uL (1.5-8.5)
[2024-05-05 22:51] LABS: PROCALCITONIN 0.25 ng/ml
[2024-05-05] MEDS: MORPHINE 4 MG/ML 1ML VIAL IV PRN (22:52)
[2024-05-05] MEDS: ASPIRIN 300 MG SUPP PR ONE (22:52)
[2024-05-05] MEDS: ONDANSETRON 4MG 2ML VIAL IV ONE (22:52)
[2024-05-05 23:08] LABS: APPEARANCE, URINE HAZY (CLEAR); BACTERIA, URINE AUTO NEGATIVE (NEGATIVE); BILIRUBIN, URINE AUTO NEGATIVE (NEGATIVE); BLOOD, URINE BLOOD 2+ (NEGATIVE); COLOR, URINE YELLOW (YELLOW); GLUCOSE, URINE (UA) AUTO NEGATIVE (NEGATIVE); KETONE, URINE AUTO 2+ mg/dL (NEGATIVE); LEUKOCYTE ESTERASE, URINE AUTO NEGATIVE (NEGATIVE); MUCUS, URINE SMALL (NEGATIVE); NITRITE, URINE AUTO NEGATIVE (NEGATIVE); PROTEIN, URINE AUTO 1+ mg/dL (NEGATIVE); RBC, URINE AUTO 57 /HPF (0-3); SPECIFIC GRAVITY URINE AUTO 1.013 (1.002-1.035); SQUAMOUS EPITHELIAL CELL UR AU 0 /HPF (0-6); UROBILINOGEN, URINE AUTO 0.2 mg/dL (0.0-2.0); WBC, URINE AUTO 3 /HPF (0-3)
[2024-05-05] MEDS: VANCOMYCIN HCL 2,000 MG, VIAL MATE ADAPTER 1 EACH in NS 500 ML IV ONE (23:47)
[2024-05-06] MEDS: CEFEPIME HCL 2 GM in DEXTROSE 5% (D5W) ADV/MINI-BAG 50 ML IV ONE (01:47)
[2024-05-06] MEDS: NS (Normal Saline) 0.9% 1,000 ML IV ONE (02:12)
[2024-05-06] MEDS ORDERED: OXYC-517 PO (02:41)
[2024-05-06] MEDS ORDERED: LIDO30CR18 TOP (02:41)
[2024-05-06] MEDS ORDERED: ONDA-282 PO (02:41)
[2024-05-06] MEDS ORDERED: IBUP80TA PO (02:41)
[2024-05-06] MEDS ORDERED: PROC10TA5 PO (02:41)
[2024-05-06] MEDS ORDERED: ARIP20TA51 PO (02:41)
[2024-05-06] MEDS ORDERED: SENN1TAB85 PO (02:41)
[2024-05-06] MEDS ORDERED: NALO4SPR20 (02:42)
[2024-05-06] MEDS ORDERED: CVS500CA5 PO (02:45)
[2024-05-06] MEDS ORDERED: HOME MED LIST COMPLETE! XX SCH (02:45)
[2024-05-06] MEDS ORDERED: THERTAB52 PO (02:45)
[2024-05-06] MEDS ORDERED: MOM 30ML SUSPENSION UDC PO PRN (02:50)
[2024-05-06] MEDS ORDERED: PROCHLORPERAZINE 5MG TAB PO PRN (03:00)
[2024-05-06] MEDS ORDERED: diazePAM 5MG TABLET PO PRN (03:00)
[2024-05-06 03:30] LABS: MAGNESIUM LEVEL 0.8 MG/DL (1.8-2.4)
[2024-05-06] MEDS ORDERED: MAG SULF 1GM/100ML (MAG RUN) 1 GM in IV 1 EA IV SCH (03:30)
[2024-05-06] MEDS: LEVALBUTEROL 1.25MG 0.5ML CONCENTRATE NEB NEB ONE (03:37)
[2024-05-06] MEDS: ACETAMINOPHEN *IV* 500 MG in IV 1 EA IV ONE ×2 (03:46→06:42)
[2024-05-06] MEDS: MAG SULF 1GM/100ML (MAG RUN) 1 GM in IV 1 EA IV SCH ×2 (03:51→07:30)
[2024-05-06] MEDS: KCL 10MEQ/100ML SWI (KRUN) 10 MEQ in IV 1 EA IV SCH (03:51)
[2024-05-06] MEDS: NS (Normal Saline) 0.9% 1,000 ML IV SCH (03:51)
[2024-05-06] MEDS: POTASSIUM CHLORIDE 10% LIQ 20MEQ/15ML UDC PO ONE (04:02)
[2024-05-06] MEDS: oxyCODONE 5MG TAB PO PRN (05:46)
[2024-05-06] MEDS: ONDANSETRON 4MG ORAL DISINTEGRATING TAB PO PRN (06:38)
[2024-05-06] MEDS: KETOROLAC 30 MG/ML 1ML VIAL IV ONE ×2 (07:30→16:51)
[2024-05-06] MEDS: VANCOMYCIN HCL 1,000 MG, VIAL MATE ADAPTER 1 EACH in NS 250 ML IV SCH (08:25)
[2024-05-06 09:08] LABS: PROCALCITONIN 21.56 ng/ml
[2024-05-06 09:09] LABS: ALBUMIN 2.3 G/DL (3.2-5.2); ALKALINE PHOSPHATASE 82 U/L (35-104); ALT/SGPT 27 U/L (7.0-40); AST/SGOT 30 U/L (<34); BILIRUBIN,TOTAL 0.4 MG/DL (0.3-1.2); BLOOD UREA NITROGEN 11 MG/DL (9-23); CARBON DIOXIDE LEVEL 18 MMOL/L (20-31); CHLORIDE LEVEL 105 MMOL/L (98-107); CREATININE FOR GFR 0.62 MG/DL (0.55-1.30); GLOMERULAR FILTRATION RATE > 60.0 (>58); GLUCOSE, FASTING 180 MG/DL (60-100); POTASSIUM SERUM 3.4 MMOL/L (3.5-5.1); SODIUM LEVEL 138 MMOL/L (136-145); TOTAL PROTEIN 5.4 G/DL (5.7-8.2)
[2024-05-06 09:20] LABS: HEMATOCRIT 23.1 % (36.0-47.0); HEMOGLOBIN 7.2 g/dl (12.0-15.5); MEAN CORPUSCULAR HEMOGLOBIN 27.1 pg (27.0-33.0); MEAN CORPUSCULAR HGB CONC 31.2 g/dl (32.0-36.5); MEAN CORPUSCULAR VOLUME 86.8 fl (80.0-96.0); PLATELET COUNT, AUTOMATED 263 10^3/uL (150-450); RED BLOOD COUNT 2.66 10^6/uL (4.00-5.40)
[2024-05-06 09:22] LABS: WHITE BLOOD COUNT 0.4 10^3/uL (4.0-10.0)
[2024-05-06 10:30] LABS: MAGNESIUM LEVEL 1.7 MG/DL (1.8-2.4)
[2024-05-06] MEDS ORDERED: NALOXONE INJ 0.4MG/1ML VIAL IV PRN (10:45)
[2024-05-06] MEDS: DULoxetine 30MG CAPSULE (CYMBALTA) PO SCH (10:57)
[2024-05-06] MEDS: ENOXAPARIN 40MG/0.4ML SYRINGE (J1650 PER 10MG) SC SCH (10:58)
[2024-05-06] MEDS: ARIPiprazole 10 MG TAB PO SCH (10:58)
[2024-05-06] MEDS: MORPHINE 10MG/0.5ML ORAL CONCENTRATE SOLUTION U/D SL PRN (10:59)
[2024-05-06] MEDS: CEFEPIME HCL 2 GM in DEXTROSE 5% (D5W) ADV/MINI-BAG 50 ML IV SCH (12:12)
[2024-05-06] MEDS: POTASSIUM CHLORIDE 10MEQ SR TABLET PO ONE (12:12)
[2024-05-06] MEDS: MORPHINE 10MG/0.5ML ORAL CONCENTRATE SOLUTION U/D SL SCH (13:52)
[2024-05-06] MEDS: ONDANSETRON 4MG ORAL DISINTEGRATING TAB PO SCH (13:54)
[2024-05-06] MEDS: ACETAMINOPHEN *IV* 1,000 MG in IV 1 EA IV ONE (14:31)
[2024-05-06 16:08] VITALS: TEMP 100.5
[2024-05-06 16:16] VITALS: BP 117/70; TEMP 98.3; O2SAT 95
[2024-05-06] MEDS: FILGRASTIM 480 MCG/0.8 ML SYRINGE **SC ADMINISTRATION ONLY SC ONE (16:51)
[2024-05-06 19:00] VITALS: TEMP 98.9
[2024-05-06 20:10] VITALS: BP 104/67; TEMP 98.6; O2SAT 98
[2024-05-06] MEDS: NYSTATIN 100,000 UNITS/GM TOPICAL PWD 15GM TOP SCH (21:32)
[2024-05-06] MEDS: PRAZOSIN 1 MG CAP PO SCH (21:33)
[2024-05-06] MEDS: ACETAMINOPHEN 325 MG TAB PO PRN (23:04)
[2024-05-06 23:31] VITALS: BP 106/66; TEMP 102; O2SAT 95
[2024-05-07] VITALS (13 sets, daily range): BP systolic 99–128; BP diastolic 62–89; TEMP 99.5–102; O2SAT 91–96
[2024-05-07 08:02] LABS: EOS # 0.1 10^3/uL (0.0-0.5); EOS % 6.2 % (0.0-3.0); HEMATOCRIT 21.8 % (36.0-47.0); HEMOGLOBIN 6.9 g/dl (12.0-15.5); LYMPH # 0.5 10^3/uL (1.5-5.0); LYMPH % 52.6 % (24.0-44.0); MEAN CORPUSCULAR HEMOGLOBIN 27.2 pg (27.0-33.0); MEAN CORPUSCULAR HGB CONC 31.7 g/dl (32.0-36.5); MEAN CORPUSCULAR VOLUME 85.8 fl (80.0-96.0); MONO # 0.1 10^3/uL (0.0-0.8); MONO % 11.3 % (2.0-8.0); NEUTROPHILS # 0.3 10^3/uL (1.5-8.5); NEUTROPHILS % 29.9 % (36.0-66.0); PLATELET COUNT, AUTOMATED 251 10^3/uL (150-450); RED BLOOD COUNT 2.54 10^6/uL (4.00-5.40)
[2024-05-07 08:08] LABS: BLOOD UREA NITROGEN 15 MG/DL (9-23); CARBON DIOXIDE LEVEL 22 MMOL/L (20-31); CHLORIDE LEVEL 106 MMOL/L (98-107); CREATININE FOR GFR 0.71 MG/DL (0.55-1.30); GLOMERULAR FILTRATION RATE > 60.0 (>58); GLUCOSE, FASTING 103 MG/DL (60-100); MAGNESIUM LEVEL 1.9 MG/DL (1.8-2.4); POTASSIUM SERUM 3.1 MMOL/L (3.5-5.1); SODIUM LEVEL 138 MMOL/L (136-145)
[2024-05-07] MEDS: KCL 10MEQ/100ML SWI (KRUN) 10 MEQ in IV 1 EA IV SCH (08:51)
[2024-05-07] MEDS: MEGESTROL 40MG TAB PO SCH (11:54)
[2024-05-07] MEDS: POTASSIUM CHLORIDE INJ 40 MEQ in LR 1,000 ML IV SCH (12:05)
[2024-05-07 14:54] LABS: BASO % 0.5 % (0.0-1.0); EOS # 0.1 10^3/uL (0.0-0.5); EOS % 3.6 % (0.0-3.0); HEMATOCRIT 26.3 % (36.0-47.0); HEMOGLOBIN 8.4 g/dl (12.0-15.5); LYMPH # 0.8 10^3/uL (1.5-5.0); LYMPH % 42.9 % (24.0-44.0); MEAN CORPUSCULAR HEMOGLOBIN 27.5 pg (27.0-33.0); MEAN CORPUSCULAR HGB CONC 31.9 g/dl (32.0-36.5); MEAN CORPUSCULAR VOLUME 86.2 fl (80.0-96.0); MONO # 0.2 10^3/uL (0.0-0.8); MONO % 11.2 % (2.0-8.0); NEUTROPHILS % 38.7 % (36.0-66.0); PLATELET COUNT, AUTOMATED 251 10^3/uL (150-450); RED BLOOD COUNT 3.05 10^6/uL (4.00-5.40)
[2024-05-07 15:11] LABS: NEUTROPHILS # 0.8 10^3/uL (1.5-8.5)
[2024-05-07] MEDS: LORazepam 1 MG TAB PO PRN (16:36)
[2024-05-07] MEDS: KETOROLAC 30 MG/ML 1ML VIAL IV ONE (17:32)
[2024-05-08] VITALS (10 sets, daily range): BP systolic 100–133; BP diastolic 64–78; TEMP 98.8–102.2; O2SAT 90–96
[2024-05-08 07:39] LABS: MEAN CORPUSCULAR VOLUME 84.5 fl (80.0-96.0); RED BLOOD COUNT 2.96 10^6/uL (4.00-5.40); WHITE BLOOD COUNT 4.6 10^3/uL (4.0-10.0)
[2024-05-08 08:01] LABS: BLOOD UREA NITROGEN 10 MG/DL (9-23); CALCIUM LEVEL 7.8 MG/DL (8.5-10.1); CARBON DIOXIDE LEVEL 21 MMOL/L (20-31); CHLORIDE LEVEL 107 MMOL/L (98-107); CREATININE FOR GFR 0.67 MG/DL (0.55-1.30); GLOMERULAR FILTRATION RATE > 60.0 (>58); GLUCOSE, FASTING 87 MG/DL (60-100); MAGNESIUM LEVEL 1.8 MG/DL (1.8-2.4); POTASSIUM SERUM 3.9 MMOL/L (3.5-5.1); SODIUM LEVEL 138 MMOL/L (136-145)
[2024-05-08 08:24] LABS: ATYPICAL LYMPH 4 % (0-5); EOSINOPHILS 4 % (0-3); LYMPHOCYTES 42 % (16-44); MONOCYTES 8 % (0-5); NEUTROPHILS 33 % (28-66)
[2024-05-08 08:25] LABS: GIANT PLATELETS 1+; PLATELET CLUMPS MODERATE AMT; PLATELET ESTIMATE INVALID (NORMAL); POLYCHROMASIA 1+
[2024-05-08 08:27] LABS: DOHLE BODIES 1+
[2024-05-08 08:28] LABS: ANISOCYTOSIS 1+; POIKILOCYTOSIS 1+
[2024-05-08 08:30] LABS: SCHISTOCYTES 1+
[2024-05-08] MEDS: LR 1,000 ML IV ONE (11:24)
[2024-05-08] MEDS: KETOROLAC 30 MG/ML 1ML VIAL IV ONE (16:11)
[2024-05-09] VITALS (7 sets, daily range): BP systolic 99–122; BP diastolic 63–87; TEMP 98.6–99.5; O2SAT 91–95
[2024-05-09 06:28] LABS: BASO # 0.1 10^3/uL (0.0-0.2); BASO % 0.5 % (0.0-1.0); EOS # 0.2 10^3/uL (0.0-0.5); EOS % 1.5 % (0.0-3.0); HEMATOCRIT 26.2 % (36.0-47.0); HEMOGLOBIN 8.4 g/dl (12.0-15.5); LYMPH # 1.5 10^3/uL (1.5-5.0); LYMPH % 13.1 % (24.0-44.0); MEAN CORPUSCULAR HGB CONC 32.1 g/dl (32.0-36.5); MEAN CORPUSCULAR VOLUME 84.2 fl (80.0-96.0); MONO # 0.8 10^3/uL (0.0-0.8); MONO % 7.3 % (2.0-8.0); NEUTROPHILS # 7.8 10^3/uL (1.5-8.5); NEUTROPHILS % 68.4 % (36.0-66.0); PLATELET COUNT, AUTOMATED 351 10^3/uL (150-450); RED BLOOD COUNT 3.11 10^6/uL (4.00-5.40); WHITE BLOOD COUNT 11.4 10^3/uL (4.0-10.0)
[2024-05-09 07:01] LABS: BLOOD UREA NITROGEN 10 MG/DL (9-23); CALCIUM LEVEL 8.3 MG/DL (8.5-10.1); CARBON DIOXIDE LEVEL 26 MMOL/L (20-31); CHLORIDE LEVEL 106 MMOL/L (98-107); CREATININE FOR GFR 0.67 MG/DL (0.55-1.30); GLOMERULAR FILTRATION RATE > 60.0 (>58); GLUCOSE, FASTING 86 MG/DL (60-100); MAGNESIUM LEVEL 1.6 MG/DL (1.8-2.4); POTASSIUM SERUM 3.8 MMOL/L (3.5-5.1); SODIUM LEVEL 139 MMOL/L (136-145)
[2024-05-09 07:07] LABS: PROCALCITONIN 4.87 ng/ml
[2024-05-09 07:14] LABS: C REACTIVE PROTEIN QUANTITATIV 33.65 MG/DL (<1.0)
[2024-05-09] MEDS: MAG SULF 1GM/100ML (MAG RUN) 1 GM in IV 1 EA IV ONE (13:16)
[2024-05-09] MEDS: LevoFLOXacin 750 MG TABLET PO SCH (20:25)
[2024-05-10 03:24] VITALS: BP 108/79; TEMP 100.6; O2SAT 96
[2024-05-10 06:22] LABS: HEMATOCRIT 25.8 % (36.0-47.0); HEMOGLOBIN 8.3 g/dl (12.0-15.5); MEAN CORPUSCULAR HEMOGLOBIN 27.1 pg (27.0-33.0); MEAN CORPUSCULAR HGB CONC 32.2 g/dl (32.0-36.5); MEAN CORPUSCULAR VOLUME 84.3 fl (80.0-96.0); PLATELET COUNT, AUTOMATED 376 10^3/uL (150-450); RED BLOOD COUNT 3.06 10^6/uL (4.00-5.40)
[2024-05-10 06:39] LABS: BLOOD UREA NITROGEN 8 MG/DL (9-23); CALCIUM LEVEL 8.2 MG/DL (8.5-10.1); CARBON DIOXIDE LEVEL 25 MMOL/L (20-31); CHLORIDE LEVEL 103 MMOL/L (98-107); CREATININE FOR GFR 0.65 MG/DL (0.55-1.30); GLOMERULAR FILTRATION RATE > 60.0 (>58); GLUCOSE, FASTING 100 MG/DL (60-100); MAGNESIUM LEVEL 1.3 MG/DL (1.8-2.4); POTASSIUM SERUM 3.4 MMOL/L (3.5-5.1); SODIUM LEVEL 138 MMOL/L (136-145)
[2024-05-10 07:28] LABS: EOSINOPHILS 2 % (0-3); LYMPHOCYTES 12 % (16-44); MONOCYTES 5 % (0-5); MYELOCYTES 2 % (0-0); NEUTROPHILS 78 % (28-66)
[2024-05-10 07:29] LABS: PLATELET ESTIMATE NORMAL (NORMAL)
[2024-05-10 07:30] LABS: DOHLE BODIES 1+
[2024-05-10 08:09] VITALS: BP 122/72; TEMP 99.9; O2SAT 90
[2024-05-10] MEDS: POTASSIUM CHLORIDE 10MEQ SR TABLET PO ONE (11:15)
[2024-05-10 12:15] VITALS: BP 119/74; TEMP 100.2; O2SAT 95
[2024-05-10] MEDS: MAGNESIUM GLUCONATE 500 MG TAB PO ONE (12:22)
[2024-05-10 16:27] VITALS: BP 120/73; O2SAT 93
[2024-05-10] MEDS: metroNIDAZOLE (FLAGYL) 500MG TABLET PO SCH (16:57)
[2024-05-10 19:33] VITALS: BP 113/65; TEMP 98.4; O2SAT 96
[2024-05-10 23:20] VITALS: BP 146/72; TEMP 98; O2SAT 95
[2024-05-11 03:47] VITALS: BP 115/73; TEMP 98.6; O2SAT 96
[2024-05-11 06:32] LABS: BASO % 0.3 % (0.0-1.0); EOS % 0.1 % (0.0-3.0); HEMATOCRIT 25.8 % (36.0-47.0); HEMOGLOBIN 8.1 g/dl (12.0-15.5); LYMPH # 1.3 10^3/uL (1.5-5.0); LYMPH % 8.5 % (24.0-44.0); MEAN CORPUSCULAR HGB CONC 31.4 g/dl (32.0-36.5); MONO # 0.9 10^3/uL (0.0-0.8); MONO % 6.3 % (2.0-8.0); NEUTROPHILS # 10.9 10^3/uL (1.5-8.5); PLATELET COUNT, AUTOMATED 407 10^3/uL (150-450); RED BLOOD COUNT 3.11 10^6/uL (4.00-5.40); WHITE BLOOD COUNT 14.8 10^3/uL (4.0-10.0)
[2024-05-11 06:55] LABS: BLOOD UREA NITROGEN 5 MG/DL (9-23); CALCIUM LEVEL 8.2 MG/DL (8.5-10.1); CARBON DIOXIDE LEVEL 26 MMOL/L (20-31); CHLORIDE LEVEL 103 MMOL/L (98-107); CREATININE FOR GFR 0.56 MG/DL (0.55-1.30); GLOMERULAR FILTRATION RATE > 60.0 (>58); GLUCOSE, FASTING 88 MG/DL (60-100); MAGNESIUM LEVEL 1.1 MG/DL (1.8-2.4); POTASSIUM SERUM 3.6 MMOL/L (3.5-5.1); SODIUM LEVEL 139 MMOL/L (136-145)
[2024-05-11 08:20] VITALS: BP 114/61; TEMP 100.3; O2SAT 94
[2024-05-11 08:26] LABS: IRON (FE) 12 UG/DL (50-170)
[2024-05-11 08:28] LABS: FOLATE 10.95 NG/ML (>5.4); VITAMIN B12 LEVEL 1886 PG/ML (211-911)
[2024-05-11] MEDS: MAG SULF 1GM/100ML (MAG RUN) 1 GM in IV 1 EA IV SCH (08:57)
[2024-05-11 08:58] LABS: TOTAL IRON BINDING CAPACITY 199 UG/DL (250-425)
[2024-05-11 09:00] LABS: FERRITIN 363.8 NG/ML (7.3-270.7)
[2024-05-11 11:27] LABS: PROCALCITONIN 1.24 ng/ml
[2024-05-11] MEDS ORDERED: PHEN1TAB73 PO (13:35)
[2024-05-11] MEDS ORDERED: METR-265 PO (13:35)
[2024-05-11] MEDS ORDERED: LEVO75TAB PO (13:35)
[2024-05-11] MEDS: FERROUS SULFATE 300MG/5ML UDC LIQUID PO SCH (14:27)
[2024-05-11 16:00] VITALS: BP 126/62; TEMP 99.6; O2SAT 96
[2024-05-11] MEDS: PHENAZOPYRIDINE 100 MG TAB PO SCH (16:52)
[2024-05-11 19:32] VITALS: BP 113/68; TEMP 97.5; O2SAT 95
[2024-05-11 23:58] VITALS: BP 119/74; TEMP 98.5; O2SAT 90
[2024-05-12 03:40] VITALS: BP 113/69; TEMP 98.9; O2SAT 94
[2024-05-12 06:06] LABS: BASO % 0.3 % (0.0-1.0); EOS % 0.2 % (0.0-3.0); HEMATOCRIT 23.7 % (36.0-47.0); HEMOGLOBIN 7.7 g/dl (12.0-15.5); LYMPH # 0.9 10^3/uL (1.5-5.0); LYMPH % 8.1 % (24.0-44.0); MEAN CORPUSCULAR HEMOGLOBIN 27.6 pg (27.0-33.0); MEAN CORPUSCULAR HGB CONC 32.5 g/dl (32.0-36.5); MEAN CORPUSCULAR VOLUME 84.9 fl (80.0-96.0); MONO # 0.8 10^3/uL (0.0-0.8); MONO % 7.4 % (2.0-8.0); NEUTROPHILS # 8.2 10^3/uL (1.5-8.5); NEUTROPHILS % 75.4 % (36.0-66.0); PLATELET COUNT, AUTOMATED 403 10^3/uL (150-450); RED BLOOD COUNT 2.79 10^6/uL (4.00-5.40); WHITE BLOOD COUNT 10.8 10^3/uL (4.0-10.0)
[2024-05-12 06:36] LABS: BLOOD UREA NITROGEN 7 MG/DL (9-23); CALCIUM LEVEL 7.9 MG/DL (8.5-10.1); CARBON DIOXIDE LEVEL 28 MMOL/L (20-31); CHLORIDE LEVEL 101 MMOL/L (98-107); CREATININE FOR GFR 0.53 MG/DL (0.55-1.30); GLOMERULAR FILTRATION RATE > 60.0 (>58); GLUCOSE, FASTING 94 MG/DL (60-100); MAGNESIUM LEVEL 1.5 MG/DL (1.8-2.4); POTASSIUM SERUM 3.7 MMOL/L (3.5-5.1); SODIUM LEVEL 139 MMOL/L (136-145)
[2024-05-12 07:47] VITALS: BP 126/64; TEMP 98; O2SAT 96
[2024-05-12] MEDS: MAG SULF 1GM/100ML (MAG RUN) 1 GM in IV 1 EA IV SCH (08:16)
[2024-05-12] MEDS: MAGNESIUM GLUCONATE 500 MG TAB PO SCH (08:49)
[2024-05-12] MEDS ORDERED: FERROUS SULFATE 15MG/ML 50ML BOTTLE PO SCH (09:00)
[2024-05-12] MEDS: MORPHINE 10MG/0.5ML ORAL CONCENTRATE SOLUTION U/D SL SCH (13:04)
[2024-05-12 15:53] VITALS: BP 126/68; TEMP 97.6; O2SAT 96
[2024-05-12 20:38] VITALS: BP 119/70; TEMP 96.8; O2SAT 97
[2024-05-12 20:58] VITALS: BP 112/69
[2024-05-12 23:06] VITALS: BP 94/53; TEMP 97.4; O2SAT 90
[2024-05-13 04:00] VITALS: BP 93/52; TEMP 97.1; O2SAT 95
[2024-05-13] MEDS ORDERED: HYOSCYAMINE SULFATE 0.125 MG SUBL TABLET PO PRN (11:35)
[2024-05-13] MEDS ORDERED: LORazepam 1 MG TAB PO PRN (11:35)
[2024-05-13 13:44] VITALS: BP 93/52; TEMP 97.1; O2SAT 95
[2024-05-14] MEDS: MORPHINE 10MG/0.5ML ORAL CONCENTRATE SOLUTION U/D SL PRN (19:40)
[2024-05-15] MEDS ORDERED: MORP1SOL5 PO (14:48)
[2024-05-15] MEDS ORDERED: METR-265 PO (14:48)
[2024-05-15] MEDS ORDERED: LEVO75TAB PO (14:48)
[2024-05-15] MEDS ORDERED: ATIV1TAB10 PO (14:48)
[2024-05-15] MEDS ORDERED: HYOS125TA PO (14:48)
== END 2024-05-16 08:05 | disposition hospice, home (50) | DRG 720 ==
LOC: M ED 20:34 → M ED INP 05-06 02:50 → M PCU 05-06 15:33 → M MS4PR 05-12 22:44 → M MS5PR 05-13 15:05
PROVIDERS: ADMIT Family Medicine; ATTEND Student in an Organized Health Care Education/Training Program
DX: A41.51 Sepsis due to Escherichia coli [E. coli] (principal); G93.41 Metabolic encephalopathy; C78.6 Secondary malignant neoplasm of retroperitoneum and peritoneum; D62 Acute posthemorrhagic anemia; E83.42 Hypomagnesemia; C55 Malignant neoplasm of uterus, part unspecified; N39.0 Urinary tract infection, site not specified; M79.7 Fibromyalgia; F28 Other psychotic disorder not due to a substance or known physiological condition; J45.909 Unspecified asthma, uncomplicated; F41.9 Anxiety disorder, unspecified; F32.A Depression, unspecified; F43.10 Post-traumatic stress disorder, unspecified; R32 Unspecified urinary incontinence; E66.9 Obesity, unspecified; Z92.21 Personal history of antineoplastic chemotherapy; Z51.5 Encounter for palliative care; Z92.3 Personal history of irradiation; E87.6 Hypokalemia; Z66 Do not resuscitate; Z79.899 Other long term (current) drug therapy; Z88.0 Allergy status to penicillin

== ENCOUNTER → 2024-05-06 | Outpatient (RCR) | payer OTHER ==
[~2024-05-06] MED LIST changes: +ARIP20TA51 PO; +CVS500CA5 PO; +IBUP80TA PO; +LEVO75TAB PO; +LIDO30CR18 TOP; +METR-265 PO; +NALO4SPR20; +ONDA-282 PO; +OXYC-517 PO; +PHEN1TAB73 PO; +PROC10TA5 PO; +SENN1TAB85 PO; +THERTAB52 PO
== END ==
LOC: M ONCR 15:03
PROVIDERS: ATTEND General Practice
DX: Z51.0 Encounter for antineoplastic radiation therapy (principal); C54.1 Malignant neoplasm of endometrium

== ENCOUNTER 2024-05-12 10:57 | Outpatient (RCR) | payer OTHER ==
[2024-05-15] MEDS ORDERED: MORP1SOL5 PO (14:48)
[2024-05-15] MEDS ORDERED: LEVO75TAB PO (14:48)
[2024-05-15] MEDS ORDERED: ATIV1TAB10 PO (14:48)
[2024-05-15] MEDS ORDERED: HYOS125TA PO (14:48)
[2024-05-15] MEDS ORDERED: METR-265 PO (14:48)
== END 2024-06-06 ==
LOC: M ONCR 10:57
PROVIDERS: ATTEND General Practice
DX: Z51.0 Encounter for antineoplastic radiation therapy (principal); C54.1 Malignant neoplasm of endometrium

== ENCOUNTER 2024-06-27 11:44 | Emergency (ER) | payer OTHER ==
[~2024-06-27] VITALS: Ht 154.9 cm; Wt 78.1 kg
[~2024-06-27 11:44] MED LIST changes: +ATIV1TAB10 PO; +HYOS125TA PO; +MORP1SOL5 PO
[2024-06-27] MEDS: ONDANSETRON 4MG 2ML VIAL IV ONE (14:08)
[2024-06-27] MEDS: NS (Normal Saline) 0.9% 1,000 ML IV SCH (14:09)
[2024-06-27] MEDS: GASTROGRAFIN SOLUTION 30ML PO SCH (14:20)
[2024-06-27 14:25] LABS: BASO % 0.2 % (0.0-1.0); EOS # 0.2 10^3/uL (0.0-0.5); EOS % 0.9 % (0.0-3.0); HEMATOCRIT 34.4 % (36.0-47.0); HEMOGLOBIN 10.6 g/dl (12.0-15.5); LYMPH # 1.7 10^3/uL (1.5-5.0); LYMPH % 8.4 % (24.0-44.0); MEAN CORPUSCULAR HEMOGLOBIN 26.6 pg (27.0-33.0); MEAN CORPUSCULAR HGB CONC 30.8 g/dl (32.0-36.5); MEAN CORPUSCULAR VOLUME 86.4 fl (80.0-96.0); MONO # 0.9 10^3/uL (0.0-0.8); MONO % 4.3 % (2.0-8.0); NEUTROPHILS # 16.9 10^3/uL (1.5-8.5); NEUTROPHILS % 84.5 % (36.0-66.0); PLATELET COUNT, AUTOMATED 484 10^3/uL (150-450); RED BLOOD COUNT 3.98 10^6/uL (4.00-5.40)
[2024-06-27] MEDS: MORPHINE SULFATE ORAL SOLN 10 MG/5 ML UD PO ONE (14:50)
[2024-06-27 14:54] LABS: LIPASE 25 U/L (12-53)
[2024-06-27 14:56] LABS: ALBUMIN 2.6 G/DL (3.2-5.2); ALKALINE PHOSPHATASE 77 U/L (35-104); ALT/SGPT 19 U/L (7.0-40); AST/SGOT 28 U/L (<34); BILIRUBIN,DIRECT < 0.1 MG/DL (<0.4); BILIRUBIN,TOTAL 0.2 MG/DL (0.3-1.2); BLOOD UREA NITROGEN 12 MG/DL (9-23); CALCIUM LEVEL 8.9 MG/DL (8.5-10.1); CARBON DIOXIDE LEVEL 30 MMOL/L (20-31); CHLORIDE LEVEL 101 MMOL/L (98-107); CREATININE FOR GFR 0.56 MG/DL (0.55-1.30); GLOMERULAR FILTRATION RATE > 90.0 (>58); GLUCOSE, FASTING 83 MG/DL (60-100); POTASSIUM SERUM 3.5 MMOL/L (3.5-5.1); SODIUM LEVEL 136 MMOL/L (136-145); TOTAL PROTEIN 5.9 G/DL (5.7-8.2)
[2024-06-27] MEDS ORDERED: ISOVUE-370 76% 100ML VIAL As Ordered ONE (15:54)
[2024-06-27 16:23] LABS: KETONE, URINE AUTO RFX NEGATIVE (NEGATIVE); NITRITE, URINE AUTO RFX NEGATIVE (NEGATIVE); RBC, URINE AUTO RFX 1 /HPF (0-3); SQUAM EPITHELIAL CELL UR AURFX 0 /HPF (0-6); WBC, URINE AUTO RFX 1 /HPF (0-3)
[2024-06-27 16:25] LABS: LEUKOCYTE ESTERASE UR AUTO RFX 1+ (NEGATIVE)
[2024-06-27] MEDS ORDERED: METR-265 PO (18:22)
[2024-06-27] MEDS: LORazepam 0.5 MG TAB PO ONE (18:43)
[2024-06-27] MEDS: metroNIDAZOLE 500 MG in IV 1 EA IV ONE (18:52)
[2024-06-27 20:00] VITALS: BP 134/84; TEMP 100.1; O2SAT 96
== END 2024-06-27 20:11 | disposition home or self-care (01) ==
LOC: M ED 11:44 → EDBD 11:44 → M ED 20:11
DX: K65.1 Peritoneal abscess (principal); N82.3 Fistula of vagina to large intestine; C54.1 Malignant neoplasm of endometrium; F32.A Depression, unspecified; F41.9 Anxiety disorder, unspecified; F43.10 Post-traumatic stress disorder, unspecified; J45.909 Unspecified asthma, uncomplicated; M79.7 Fibromyalgia; K58.9 Irritable bowel syndrome, unspecified
CPT/HCPCS: 51701; 74177; 80048; 80076; 81001; 83605; 83690; 85025; 87040; 87086; 93041; 96361; 96365; 96375; 99284; J1642; J1836; J2405; Q9963; Q9967

== ENCOUNTER → 2024-07-14 | Outpatient (REF) | payer OTHER | LOC: M LAB REF 15:05 | PROVIDERS: ATTEND Physician Assistant | DX: N32.1 Vesicointestinal fistula (principal) ==